=== PATIENT | female | born 1980 | race Caucasian/White ===

== ENCOUNTER → 2017-04-01 | Day surgery (SDC) | payer OTHER ==
--- NOTE | 2017-04-01 18:40 | Operative Report ---
Operative/Inv Procedure Report Surgery Date: 04/01/17 Name of Procedure: Hysteroscopy D&C with resection of endometrial tissue and small endometrial polyps with myosure device, followed by a cervical biopsy at 10:00 and four- quadrant laser ablation Pre-Operative Diagnosis: Patient with colposcopy that showed GIOVANY-3 on biopsy taken at 10 o'clock position , and persistent abnormal bleeding where transvaginal ultrasound and then [place] sonogram revealed endometrial polyps Post-Operative Diagnosis: Same, some adhesions noted within the uterine cavity. Multiple small polyps noted Estimated Blood Loss: less than 50ml Surgeon/Real Estate Professor: BIMAL LOZA,ROBY Dan Anesthesia: local monitored anesthesi Monitors: Blood pressure cuff, EKG electrodes, pulse oximeter IV Fluids: 750 ML crystalloid Implants: None Urine Output: None measured, no catheterization performed Drains: None Specimens: #1 ECC #2 endometrial resection small polyps #3 cervical biopsy at 10:00 Microbiology: None Complications: None Condition: Good Operative Indication: Office colposcopic biopsy at 10:00 showed GIOVANY-3 with a negative ECC patient was advised for intraoperative cervical biopsy and four-quadrant laser ablation. Patient was also having abnormal uterine bleeding, transvaginal ultrasound and ultimately hydro-sonogram showed endometrial polyps. Patient was advised for hysteroscopy D&C and resection of the endometrial polyps. Decision was made to combine the laser cervical procedure and the D&C hysteroscopy with anel- sure device on the same day Operative/Procedure Note Note: Patient was brought to the operating room and placed on the OR table in dorsal supine position initially. Timeout was discussed by the team and agreed upon. Patient did not require antibiotics for this procedure today. Patient was given IV sedation and once there was evidence of adequate IV sedation she was then placed in the dorsal lithotomy position with pneumatic compression boots her lower extremities. Patient was then prepped and draped usual sterile fashion. Exam under anesthesia showed a normal-size uterus. Speculum was placed in the vagina cervix was visualized. Single-tooth tenaculum placed on the into lip of cervix endocervical curettage performed and specimen submitted. Cervix her carefully dilated #6 Hegar dilator. Hysteroscope was introduced to the endocervical canal into the endometrial cavity. There were multiple small polyps of the endometrium small fundal septum and some intrauterine adhesions that were consistent with prior Asherman's syndrome. Decision was made to employ the myosure resection device to adequately sample the endometrial cavity and resect the small polyps. This was performed without difficulty. There was still of some abnormal areas of scarring within the uterine cavity that were not resected., No evidence of submucosal myomas. After completion of the curettage and resection of the small endometrial polyps, there was evidence of good hemostasis. All instruments removed from the vagina. Sponge and instrument counts were correct at this point. We then turned our attention to the laser procedure. Blackened speculum was placed in the vagina and the cervix again was visualized. The perineum was draped with wet towels. The operating colposcope/ microscope with the laser attachment was brought into focus. Cervix was easily visualized. Lugol's solution was applied to the cervix. The squamocolumnar junction was easily seen. Laser was set to 16 W single pulse, and using a tightly focused laser beam, the margin for the laser ablation was then marked. A dilute Pitressin solution was then injected into the cervical stroma. Biopsy was taken at 10:00 and was handed off the table as cervical biopsy. The laser was then set to 18 W continuous power, and a 4 quadrant laser ablation was easily accomplished. The lateral margin of the circumference of the laser conization was a minimum of 7 mm out from the edge of the external os of the cervix and the bed of the four-quadrant ablation measured 7 mm deep minimum. At this time the laser beam was defocused and the wattage taken down to 14 W to obtain good hemostasis. At this time there was evidence of good hemostasis. Monsel solution was applied to the cervix. Good hemostasis continued. All instruments removed from the vagina now. Sponge and instrument counts were correct 2. Vaginal exam showed no retained sponges. Patient was now returned to the dorsal supine position awakened from anesthesia and taken recovery room good condition Findings: Findings hysteroscopic review of the uterine cavity showed some evidence of intrauterine car scarring such as in Asherman's syndrome and multiple small polypoid projections within the endometrial cavity. MYOSURE resection device was employed to remove the polypoid tissue within the uterine cavity. Colposcopic review of the cervix showed adequate visualization of the squamocolumnar junction. Lugol's solution demarcated the edge of the cervical lesion. Cervical biopsy was taken at 10:00 in a four-quadrant laser ablation was accomplished. Good hemostasis was noted from both procedures. Discharge Disposition: PACU
== END ==
LOC: STS 02:32
DX: N84.0 Polyp of corpus uteri (principal); N93.9 Abnormal uterine and vaginal bleeding, unspecified; N73.6 Female pelvic peritoneal adhesions (postinfective); D06.9 Carcinoma in situ of cervix, unspecified; Q60.0 Renal agenesis, unilateral
CPT/HCPCS: 81025; 88305; J0131; J2250